=== PATIENT | female | born 1960 | race Caucasian/White ===

== ENCOUNTER → 2020-07-20 | Outpatient (CLI) | payer BC ==
[~2020-07-20] MED LIST: ASPIRIN325 MG PO; COREG 12.5MG12.5 MG PO; LASIX40 MG PO; LIPITOR TAB 2020 MG PO; NITRO-TIME6.5 MG PO; POTASSIUM CHLO20 ME1 PO; SYNTHROID50 MCG PO; TYLENOL 500 MG500 MG PO; [UNRECOGNIZED DRUG - OTHER] PO
== END ==
LOC: ECHO 13:21
DX: R06.00 Dyspnea, unspecified (principal); I07.1 Rheumatic tricuspid insufficiency; I31.3 Pericardial effusion (noninflammatory)
CPT/HCPCS: ECHO; 93306

== ENCOUNTER → 2020-09-28 | Outpatient (CLI) | payer BC ==
[2020-09-28 06:04] LABS: HEMOGLOBIN 12.5 gm/dl (12.3-15.3); RED BLOOD COUNT 4.31 M/UL (4.00-5.10); WHITE BLOOD COUNT 6.2 K/UL (4.5-11.0)
[2020-09-28 06:29] LABS: BUN/CREATININE RATIO 23 (0-10)
[2020-09-29 11:14] LABS: HBSAG SCREEN Negative (Negative); HEP A AB, IGM Negative (Negative); HEP B CORE AB, IGM Negative (Negative)
[2020-10-06 09:50] LABS: HEP C VIRUS AB <0.1 (0.0-0.9); THYROXINE (T4) 8.2 ug/dL (4.5-12.0); VITAMIN D, 25-HYDROXY 19.7 ng/mL (30.0-100.0)
== END ==
LOC: LAB 05:43
PROVIDERS: Family Medicine
DX: Z00.00 Encounter for general adult medical examination without abnormal findings (principal); E78.6 Lipoprotein deficiency; I10 Essential (primary) hypertension; E03.9 Hypothyroidism, unspecified; K21.9 Gastro-esophageal reflux disease without esophagitis; R73.01 Impaired fasting glucose
CPT/HCPCS: 80048; 80061; 80074; 82607; 82652; 83036; 84436; 84443; 85025

== ENCOUNTER → 2021-03-15 | Outpatient (CLI) | payer OTHER | LOC: RAD 16:05 | DX: M50.10 Cervical disc disorder with radiculopathy, unspecified cervical region (principal); M47.22 Other spondylosis with radiculopathy, cervical region | CPT/HCPCS: 72040 ==